=== PATIENT | male | born 1985 | race Caucasian/White ===

== ENCOUNTER 2023-09-16 19:08 | Emergency (ER) | payer OTHER, SELFPAY ==
[2023-09-16 19:11] VITALS: BP 125/82; PULSE 90; RESP 16; TEMP 36.9; O2SAT 98; BMI 25.8
[2023-09-16] MEDS: CLINDAMYCIN 150 MG CAPSULE 300 MG PO (19:54)
--- NOTE | 2023-09-16 19:59 | ED.GENADULT ---
HPI - General Adult General Date Seen: 09/16/23 Chief complaint: Laceration/Wound Stated complaint: Left ear needs stiches Time Seen by Provider: 09/16/23 19:10 Source: patient Mode of arrival: ambulatory Limitations: no limitations History of Present Illness HPI narrative: Patient is a 38-year-old male here with his for evaluation of a laceration on his left ear. He was playing with his 2 dogs, 1 of them caught his left earlobe with their tooth. Both he and the dog are up-to-date in immunizations. No other injuries or complaints. Related Data Home Medications ?Medication ?Instructions ?Recorded ?Confirmed Lactobacillus acidophilus 10 10,000 mmu cells PO DAILY 09/16/23 09/16/23 billion cell capsule albuterol sulfate 90 mcg/actuation 2 inh inhalation Q6H PRN 09/16/23 09/16/23 aerosol inhaler bupropion HCl 300 mg 24 hr tablet, 300 mg PO DAILY 09/16/23 09/16/23 extended release (Wellbutrin XL) dextroamphetamine-amphetamine ER 10 mg PO BID 09/16/23 09/16/23 10 mg 24hr capsule,extend release (Adderall XR) fluticasone propionate 50 2 spray intranasal DAILY PRN 09/16/23 09/16/23 mcg/actuation nasal spray,suspension (24 Hour Allergy Relief) magnesium oxide 500 mg capsule 500 mg PO BID 09/16/23 09/16/23 montelukast 10 mg tablet 10 mg PO .PRN 09/16/23 09/16/23 (Singulair) pantoprazole 20 mg tablet,delayed 20 mg PO DAILY 09/16/23 09/16/23 release (Protonix) tizanidine 2 mg capsule (Zanaflex) 2 mg PO Q6-8H PRN 09/16/23 09/16/23 Previous Rx's ?Medication ?Instructions ?Recorded clindamycin HCl 300 mg capsule 300 mg PO TID #15 caps 09/16/23 Allergies Allergy/AdvReac Type Severity Reaction Status Date / Time Penicillins Allergy Unknown Anaphylaxis Verified 09/16/23 19:14 PFSH PFS Social History Smoking Status: Never smoker How often do you have a drink containing alcohol: never AUDIT-C Alcohol total score: 0 Non-prescribed substance use: denies use Exam Narrative: Exam Narrative: Vital signs reviewed In general, alert, well-appearing man. ENT: He has a 1 cm laceration across the left ear lobe which does gape some. Is not a through and through laceration however. Const: Vital Signs, click to edit/add: Vital Signs - 24 hr 09/16/23 19:11 Temperature 98.5 F Pulse Rate [Pulse Oximeter] 90 Respiratory Rate 16 Blood Pressure [Ri ght Upper Arm] 125/82 Pulse Oximetry 98 Oxygen Delivery Me thod Room Air Documenting provider has reviewed patient's vital signs: yes Course Course ED Course: I recommended repair of this given location and appearance, he understands that the rate of infection is higher given that this is a laceration from a tooth. Agreed to proceed. Procedure note: Wound was anesthetized with local lidocaine with epinephrine. Cleaned thoroughly with normal saline and then closed using 5 0 nylon. A total of for superficial simple interrupted sutures were placed. He tolerated this well without immediate complication. He does have an allergy to penicillin. Pharmacies are closed, will give a dose of clindamycin here and then a prescription to fill tomorrow. Suture removal in 5-7 days. Should be seen promptly for signs of infection. Vital Signs Vital signs: Initial Vital Signs Temperature 98.5 F 09/16/23 19:11 Temperature Source Temporal Artery Scan 09/16/23 19:11 Pulse Rate 90 09/16/23 19:11 Pulse Rhythm Regular 09/16/23 19:11 Respiratory Rate 16 09/16/23 19:11 Blood Pressure 125/82 09/16/23 19:11 Blood Pressure Mean 96 09/16/23 19:11 Blood Pressure Position Sitting 09/16/23 19:11 Pulse Oximetry 98 09/16/23 19:11 Oxygen Delivery Method Room Air 09/16/23 19:11 Vital Signs Temperature 98.5 F 09/16/23 19:11 Pulse Rate 90 09/16/23 19:11 Respiratory Rate 16 09/16/23 19:11 Blood Pressure 125/82 09/16/23 19:11 Pulse Oximetry 98 09/16/23 19:11 Oxygen Delivery Method Room Air 09/16/23 19:11 Temperature 98.5 F 09/16/23 19:11 Pulse Rate 90 09/16/23 19:11 Respiratory Rate 16 09/16/23 19:11 Blood Pressure 125/82 09/16/23 19:11 Pulse Oximetry 98 09/16/23 19:11 Oxygen Delivery Method Room Air 09/16/23 19:11 Medications Administered Medications: Generic Name Dose Route Start Last Admin Trade Name Wilfred PRN Reason Stop Dose Admin Clindamycin HCl 300 mg 09/16/23 19:39 09/16/23 19:54 Clindamycin 150 Mg Capsule PO 09/16/23 19:40 300 mg ONCE ONE Administration Discharge Plan Discharge Clinical Impression: Laceration, Animal bite Patient Disposition: Home, Self-Care Condition: Improved Instructions: Laceration (DC) Additional Instructions: Take antibiotic as prescribed. Suture removal in 5-7 days. Return at any time if signs of infection. Prescriptions: New clindamycin HCl 300 mg capsule 300 mg PO TID Qty: 15 0RF No Action magnesium oxide 500 mg capsule 500 mg PO BID Lactobacillus acidophilus 10 billion cell capsule 10,000 mmu cells PO DAILY tizanidine [Zanaflex] 2 mg capsule 2 mg PO Q6-8H PRN Rx Instructions: Take 1-2mg PO each time PRN for muscle spasm pantoprazole [Protonix] 20 mg tablet,delayed release (DR/EC) 20 mg PO DAILY montelukast [Singulair] 10 mg tablet 10 mg PO .PRN bupropion HCl [Wellbutrin XL] 300 mg tablet extended release 24 hr 300 mg PO DAILY albuterol sulfate 90 mcg/actuation HFA aerosol inhaler 2 inh inhalation Q6H PRN dextroamphetamine-amphetamine [Adderall XR] 10 mg capsule,extended release 24hr 10 mg PO BID fluticasone propionate [24 Hour Allergy Relief] 50 mcg/actuation spray,suspension 2 spray intranasal DAILY PRN Rx Instructions: administer into each nostril Stand Alone Forms: [facility] Info Inst[facility]
[2023-09-16 20:13] VITALS: BP 125/82; PULSE 90; RESP 16; TEMP 36.9
== END 2023-09-16 20:18 | disposition home or self-care (01) ==
PROVIDERS: Emergency Provider Emergency Medicine
DX: S01.312A Laceration without foreign body of left ear, initial encounter (principal); W54.0XXA Bitten by dog, initial encounter
CPT/HCPCS: 12011; 99283; 99284; A9270

== ENCOUNTER 2024-09-30 17:45 | Emergency (ER) | payer OTHER, SELFPAY ==
--- OUTSIDE RECORDS SUMMARY | 2024-09-30 17:48 | XMS_ITS | Clinical Summary ---
Author Organization [facility] Address [address] [place] [address] Care Team Providers Care Land Leases And Rentals Manager Name Role Phone Unavailable Primary Care Provider Unavailabl e Source Comments Patient records contain information from all sites at [facility]. For routine questions regarding patient records, call [phone] during business hours, M-F 8:00 AM - 5:00 PM Central Time. Record requests for emergency care only can be directed to [phone] at any time.[facility] Allergies Active Allergy Reactions Criticality Noted Date Comments Omeprazole GI intolerance 10/03/2019 Penicillin G Anaphylaxis High 08/12/2023 Penicillins Anaphylaxis High 11/24/2015 Medications ketotifen (ZADITOR) 0.025 % (0.035 %) ophthalmic solution 1 drop 2 (two) times a day. Active doxycycline monohydrate (ADOXA) 100 mg tablet Take 1 tablet (100 mg total) by mouth 2 (two) times a day. 28 tablet 4 Active metroNIDAZOLE (FLAGYL) 500 mg tablet Take 1 tablet (500 mg total) by mouth 3 (three) times a day. 30 tablet 4 Active albuterol sulfate (ProAir RespiClick) 90 mcg/actuation aerosol powdr breath activated inhaler daily as needed. Active buPROPion XL (Wellbutrin XL) 300 mg 24 hr tablet Take 1 tablet by mouth daily. 4 Active cholecalciferol, vitamin D3, 25 mcg (1,000 Unit) tablet Take 1,000 Units by mouth. Active clindamycin (Cleocin) 300 mg capsule Take 1 capsule by mouth 3 (three) times a day. 4 Active amphetamine-dext roamphetamine (AdderalL XR) 10 mg 24 hr capsule Take 10 mg by mouth. 4 Active fluticasone propionate (Flonase) 50 mcg/actuation nasal spray Administer 2 sprays into nostril(s) daily. 0 Active Lactobacillus acidophilus 10 billion cell capsule Probiotic one tablet daily Active magnesium oxide 500 mg capsule Take 500 mg by mouth 2 (two) times a day. 0 Active montelukast (Singulair) 10 mg tablet Take 1 tablet by mouth at bedtime. 3 Active pantoprazole (Protonix) 20 mg EC tablet Take 20 mg by mouth. 4 Active tiZANidine (Zanaflex) 2 mg tablet Take 1-2 mg by mouth every 6 (six) hours as needed. 4 Active albuterol 90 mcg/actuation inhaler Inhale 2 puffs 4 (four) times a day as needed. 8 Active dextroamphetamin e-amphetamine (AdderalL) 10 mg tablet Take 1 tablet by mouth daily. 9 Active dextroamphetamin e-amphetamine (AdderalL) 10 mg tablet Take 1 tablet by mouth daily. 3 Active Active Problems No known active problems Social History Tobacco Use Types Packs/Day Years Used Date Smoking Tobacco: Never Tobacco Cessation:Counseling Given: Not Answered Alcohol Use Standard Drinks/Week Comments Yes 0 (1 standard drink = 0.6 oz pur e alcohol) socially on occasion Sex and Gender Information Value Date Recorded Sex Assigned at Not on file Legal Sex Male 10:49 AM CDT Gender Identity Not on file Sexual Orientation Not on file Last Filed Vital Signs Vital Sign Reading Time Taken Comments Blood Pressure 121/87 09/27/2023 7:56 AM CDT Pulse 79 09/27/2023 7:56 AM CDT Temperature 36.8 C (98.2 F) 08/12/2023 11:08 PM CDT Respiratory Rate 16 08/12/2023 11:08 PM CDT Oxygen Saturation 95% 08/12/2023 11:08 PM CDT Inhaled Oxygen Concentration - - Weight 82 kg (180 lb 12.4 oz) 08/12/2023 10:38 P M CDT Height - - Body Mass Index - - Plan of Treatment Health Maintenance Due Date Last Done Comments COVID-19 Vaccine ( season) 2023 03/01/2021, 04/15/2020, 03/25/2020 Depression Screening (Annual PHQ-2) 03/12/2024 Influenza Vaccine (#1) 2024 , 01/01/2023, 12/09/2021, Additional history exists Lipid (Cholesterol) Screening 08/03/2025 08/03/2020, 10/03/2019 DTaP,Tdap,and Td Vaccines (7 - Td or Tdap) 03/31/2031 03/31/2021, 10/23/2002, 07/15/1990, Additional history exists IPV Vaccines Completed 07/15/1990, 09/10, 1985, Additional history exists HPV Vaccines Completed 03/31/2021, 12/10, 09/29/2020 HIV Screening Completed 10/05/2023, 08/12/2023 Hepatitis B Screening Discontinued 12/24/2023, 020 Pneumococcal vaccine (0-49 years) Aged Out No longer eligible based on patient's age to complete this topic Procedures Procedure Name Priority Date/Time Associated Diagnosis Comments HIV-1/-2 AG AND AB SCREEN, PLASMA Routine 10/05/2023 8:49 AM CDT Open Bite Unspecified Part Neck Initial from Last 3 Months or Most Recently Relevant to Health Maintenance Results * HIV-1/-2 Ag and Ab Screen, Plasma (10/05/2023 8:49 AM CDT) HIV Ag/Ab Screen, P Negative Negative 10/05/2023 4:12 PM CDT [facility] Comment: Negative result does not rule out HIV infection. If exposure to HIV infection occurred <14 days ago, contact the laboratory to request addition of HIV-1/HIV-2 RNA detection, Plasma (HIP12). HIV-1 p24 Ag Screen, P Negative Negative 10/05/2023 4:12 PM CDT [facility] Comment: Negative result does not rule out HIV infection. If exposure to HIV infection occurred <14 days ago, contact the laboratory to request addition of HIV-1/HIV-2 RNA detection, Plasma (HIP12). HIV-1 Ab Screen, P Negative Negative 10/05/2023 4:12 PM CDT [facility] Comment: Negative result does not rule out HIV infection. If exposure to HIV infection occurred <14 days ago, contact the laboratory to request addition of HIV-1/HIV-2 RNA detection, Plasma (HIP12). HIV-2 Ab Screen, P Negative Negative 10/05/2023 4:12 PM CDT [facility] Comment: Negative result does not rule out HIV infection. If exposure to HIV infection occurred <14 days ago, contact the laboratory to request addition of HIV-1/HIV-2 RNA detection, Plasma (HIP12). Blood (Blood, Venous) 10/05/2023 8:49 AM CDT 10/05/2023 2:56 PM CDT Christiana Vu P.A.-C., P.A., M.S. LAB MICROBIOLOGY - BLOOD ORDERABLES Final Result [facility] [address] [place] [id number], [facility] [place] [id number] from Last 3 Months or Most Recently Relevant to Health Maintenance Insurance [place] [id number] [employer] [place] [id number] [employer] [place] [id number] [facility] [place] [id number]
--- OUTSIDE RECORDS SUMMARY | 2024-09-30 17:48 | XMS_ITS | Clinical Summary ---
Author Organization [facility] Address [address] [place] [address] Care Team Providers Care Steward/Stewardess Bath Name Role Phone Danita Lentz MD Primary Care Prov ider Allergies Active Allergy Reactions Criticality Noted Date Comments Esomeprazole Other - Describe In Comment Field 10/03/2019 Causes Reflux Omeprazole Constipation 10/03/2019 Penicillin G Anaphylaxis High 08/12/2023 Penicillins Anaphylaxis High 10/03/2019 Medications Lactobacillus acidophilus (PROBIOTIC) 10 billion cell cap Probiotic one tablet daily Active Magnesium Oxide 500 mg cap Take 500 mg by mouth 2 times daily. 0 020 Active albuterol HFA (PRO-AIR,VENTOLIN,PROV ENTIL) 90 mcg/actuation inhalerIndications:Mil d intermittent asthma without complication (HC) Inhale 2 Puffs by mouth 4 times daily if needed (SOB/wheezing). 8.5 g 023 Active Additional Information Patient taking differently:2 Puff InhalationEACH TIME PRN, SOB/wheezing, Reported on 05/26/2024 meloxicam 15 mg tabletIndications:Acut e wrist pain, right Take 1 Tablet (15 mg) by mouth once daily. 14 Tablet 08/18/19 24 2:57 AM CDT 024 Active pantoprazole (PROTONIX) 20 mg tabletIndications:Treasury Director iker GERD Take 1 Tablet (20 mg) by mouth once daily before a meal. 90 Tablet 3 024 Active tiZANidine (ZANAFLEX) 2 mg tabletIndications:Acut e low back pain, unspecified back pain laterality, unspecified whether sciatica present Take 0.5-1 Tablets (1-2 mg) by mouth every 6 hours if needed for Muscle Spasm. 20 Tablet 2 024 Active montelukast (SINGULAIR) 10 mg tabletIndications:Yeyo rgic rhinoconjunctivitis Take 1 Tablet (10 mg) by mouth at bedtime. 90 Tablet 3 024 Active buPROPion (Wellbutrin XL) 300 mg Extended-Release tabletIndications:Depr ession, recurrent Take 1 Tablet (300 mg) by mouth once daily. 90 Tablet 3 024 Active dextroamphetamine-amph etamine (Adderall XR) 10 mg Extended-Release capsuleIndications:Att ention deficit hyperactivity disorder (ADHD), predominantly inattentive type Take 1 Capsule (10 mg) by mouth 2 times daily at 7 AM and Noon. 60 Capsule 025 Active emtricitabine-tenofovi r (200-300 mg) (Truvada) tabletIndications:Enco unter for HIV pre-exposure prophylaxis Take 1 Tablet by mouth once daily. 90 Tablet 025 Active dextroamphetamine-amph etamine (Adderall XR) 10 mg Extended-Release capsuleIndications:Att ention deficit hyperactivity disorder (ADHD), predominantly inattentive type Take 1 Capsule (10 mg) by mouth 2 times daily at 7 AM and Noon. 60 Capsule 025 Active dextroamphetamine-amph etamine (AdderalL) 5 mg tabletIndications:Atte ntion deficit hyperactivity disorder (ADHD), predominantly inattentive type Take 1 Tablet (5 mg) by mouth once daily. As needed 15 Tablet 025 Active dextroamphetamine-amph etamine (Adderall XR) 10 mg Extended-Release capsuleIndications:Att ention deficit hyperactivity disorder (ADHD), predominantly inattentive type Take 1 Capsule (10 mg) by mouth 2 times daily at 7 AM and Noon. 60 Capsule 025 2024 dextroamphetamine-amph etamine (AdderalL) 5 mg tabletIndications:Atte ntion deficit hyperactivity disorder (ADHD), predominantly inattentive type Take 1 Tablet (5 mg) by mouth once daily. 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 Mild intermittent asthma without complication Gastroesophageal reflux disease without esophagi tis 06/07/2007 Encounters Date Type Department Care Team Description 07/23/2024 Telephone [facility] [address] [place] [address] Danita Lentz MD Prior Authorization (dextroamphetamine-am phetamine (Adderall XR) 10 mg Extended-Release capsule (PA NOT NEEDED / NOT REQUIRED)) 07/23/2024 Telephone [facility] [address] [place] [address] Danita Lentz MD Prior Authorization (dextroamphetamine-am phetamine (AdderalL) 5 mg tablet (APPROVED 07/23/24 - 07/23/27)) 07/18/2024 5:35 PM CDT Nurse/Clinic Staff Only [address] [address] 07/18/2024 Travel 07/18/[address] [address] Danita Lentz MD Results 07/18/2024 Patient Outreach [address] [address] Danita Lentz MD Error-please disregard 07/17/2024 1:30 PM CDT Nurse/Clinic Staff Only [address] [address] Lab (Oral and rectal chlamydia screening ) 07/16/2024 11:05 AM CDT Office Visit [facility] [address] [place] [address] Danita Lentz MD Medication Management (Renewal /Would like to add quick release for adderall ) 07/16/2024 Travel from Last 3 Months Immunizations Immunization Administration Dates Next Due COVID-19 vaccine (OdinOtvetBio NTech 30mcg/0.3mL) PF, MDV 04/15/2020,03/25/2020 DTP 07/15/1990, 7,1985,05/16,1985 HPV 9 (Gardasil 9) 03/31/2021,12/21/2020, 021 Hepatitis A (Adult) 06/07/2007 Hepatitis A (Peds) 05/05/2008,06/07/2007 Hepatitis A, Unspecified 05/05/2008,06/07/2007 Hepatitis B (Peds) 07/09/1996,02/07/1996, 996 Hepatitis B, Unspecified 07/09/1996,02/07/1996,1 INFLUENZA, IIV3 PF (AGE >= 6 MO) 02/01/2024 Inactivated Polio Vaccine 07/15/1990,,1985,03/27 Influenza Virus, Unspecified 01/26/2018,12/19/19 17,12/26/2015 Influenza, IIV4 01/01/2023,,12/21/2020,12/29 Influenza, IIV4 (=>6mos) MDV 12/30/2019 Influenza, RIV3 (Age =>18 Years) 01/22/2014 MMR 02/16/1997,10/01/1986 Meningococcal Vaccine (Menactra) 11/30/2003 Meningococcal Vaccine (Menomune) 11/30/2003 Td (Age >=7 Years) 10/10/2013,10/23/2002 Td, Preservative Free (age >= 7 Years) 3 Tdap 03/31/2021 Tuberculin (PPD) 09/28/2003, 4,10/07/2002,10/07 Family History Medical History Relation Name Comments Asthma Brother 1 Thyroid cancer Brother 1 SIDS Brother 2 Diabetes Father Heart Disease Father s/p CABG Kidney cancer Father Obesity Father Stroke Maternal Grandmother Anemia Mother Cancer-prostate Paternal Grandfather Alzheimer's disease Paternal Grandmother No Known Problems Sister Relation Name Status Comments Brother 1 Alive Brother 2 Father Alive Maternal Grandfather Maternal Grandmother Mother Alive Paternal Grandfather Paternal Grandmother Sister Alive Social History Tobacco Use Types Packs/Day Years Used Date Smoking Tobacco: Never Passive Smoke Exposure: Past Smokeless Tobacco: Never Tobacco Cessation:Counseling Given: Not Answered Passive Exposure Comments:as a child Alcohol Use Standard Drinks/Week Comments Yes 0 (1 standard drink = 0.6 oz pur e alcohol) PHQ-2 Answer Date Recorded PHQ-2 TOTAL SCORE 2 10/31/2023 Social Connections Answer Date Recorded Do you often feel lonely or isolated from those around you? 0 10/31/2023 Financial Resource Strain Answer Date R ecorded Difficulty of Paying Living Expenses 3 10/31/2023 Difficulty of Paying Living Expenses Not on file 10/31/2023 Food Insecurity Answer Date Recorded Do you worry your food will run out before you are able to buy more? 1 10/31/2023 Transportation Needs Answer Date Record ed Does lack of transportation keep you from medica l appointments? 1 10/31/2023 Does lack of transportation keep you from work, meetings or getting things that you need? 1 10/31/2023 Housing Stability Answer Date Recorded What is your housing situation today? 1 10/31/2023 Interpersonal Safety Answer Date Record ed Are you being hit, kicked, p ushed or yelled at (see row info)? No 07/22/2023 Interpersonal Safety Abuse 12 - 18 Not on file 07/22/2023 Interpersonal Safety Ambulatory Vulnerability No t on file 07/22/2023 Utilities Answer Date Recorded Do you have trouble paying f or utilities (for example, heat, electricity, water, phone)? 1 10/31/2023 Sex and Gender Information Value Date Recorded Sex Assigned at Male 12/15/2019 5:12 PM CDT Legal Sex Male 5:12 PM CDT Gender Identity Male 12/15/2019 5:12 PM CDT Sexual Orientation Lesbian or Sanchez 03/13/2022 7: 46 PM 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 file Not on file Obstetrics History Last Filed Vital Signs Vital Sign Reading Time Taken Comments Blood Pressure 110/75 07/16/2024 11:09 AM CDT Pulse 78 07/16/2024 11:09 AM CDT Temperature 37.1 C (98.7 F) 08/17/2023 12:45 PM CDT Respiratory Rate 16 12/24/2023 1:55 PM CDT Oxygen Saturation 97% 07/16/2024 11:09 AM CDT Inhaled Oxygen Concentration - - Weight 88 kg (194 lb) 02/01/2024 9:11 AM 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 Height 181.3 cm (5' 11.38) 12/24/2023 1:55 PM C DT Body Mass Index 26.77 12/24/2023 1:55 PM CDT Plan of Treatment Health Maintenance Due Date Last Done Comments COVID-19 vaccine series ( season) 2023 03/01/2021, 04/15/2020, 03/25/2020 Depression screening for age 12+ 10/30/2024 10/31/2023, 10/31/2023, 03/31/2021, Additional history exists Influenza Vaccine (#1) 2024 , 01/01/2023, 12/09/2021, Additional history exists BMI (ht and wt on same day) for age 18+ 12/23/2024 12/24/2023, 12/09/2021, 09/01/2021, Additional history exists Lipids for age 35-44 12/23/2028 12/24/2023, 08/03/2020, 10/03/2019 Tetanus booster 03/31/2031 03/31/2021, 08/0 03/2013, 10/23/2002, Additional history exists Hepatitis B series for 19+ Completed 07/09, 07/09/1996, 02/07/1996, Additional history exists HIV for age 15-65 Completed 07/16/2024, , 06/05/2022, Additional history exists Hepatitis C screening for age 18-79 Completed 07/16/2024, 12/24/2023, 06/05/2022, Additional history exists Pneumococcal series for age 6-49 Aged Out No longer eligible based on patient's age to complete this topic Procedures Procedure Name Priority Date/Time Associated Diagnosis Comments GC CHLAMYDIA TRACH PROBE Routine 07/17/2024 1:40 PM CDT Encounter for HIV pre-exposure prophylaxis GC CHLAMYDIA TRACH PROBE Routine 07/17/2024 1:40 PM CDT Encounter for HIV pre-exposure prophylaxis CREATININE Routine 07/16/2024 1:41 PM CDT Encounter for HIV pre-exposure prophylaxis ANTI HIV 1/2 Routine 07/16/2024 1:41 PM CDT Encounter for HIV pre-exposure prophylaxis HEPATIC FUNCTION PANEL Routine 07/16/2024 1:41 PM CDT Encounter for HIV pre-exposure prophylaxis ANTI HCV Routine 07/16/2024 1:41 PM CDT Encounter for HIV pre-exposure prophylaxis TREPONEMA PALLIDUM Routine 07/16/2024 1: 40 PM CDT Encounter for HIV pre-exposure prophylaxis GC CHLAMYDIA TRACH PROBE Routine 07/16/2024 11:34 AM CDT Encounter for HIV pre-exposure prophylaxis LIPID PANEL Routine 12/24/2023 2:43 PM CDT Screening cholesterol level from Last 3 Months or Most Recently Relevant to Health Maintenance Results * GC Chlamydia [[id number]] - Oral (07/17/2024 1:40 PM CDT) Only the most recent of3 resultswithin the time period is included. CHLAMYDIA PROBE Negative 12:58 PM CDT [facility] N GONORRHOEAE PROBE Negative 07/18/2024 12:58 PM CDT [facility] Other ORAL / Unknown Non-Blood / Unknown 07/17/2024 1:40 PM CDT 07/17/2024 2:02 PM CDT Danita Lentz MD MICROBIOLOGY Fi nal Result [facility] [address] [place] [address], [place] * ANTI HCV (07/16/2024 1:41 PM CDT) HEPATITIS C ANTIBODY NON-REACTI VE NON-REACT VENTURA [facility] Comment: HCV antibody was non-reactive. There is no laboratory evidence of HCV infection. In most cases, no further action is required. However, if recent HCV exposure is suspected, a test for HCV RNA (test code 67184) is suggested. For additional information please refer to http://education.iPositioning/faq/IWF37j6 (This link is being provided for informational/ educational purposes only.) Blood BLOOD SPECIMEN / Unknown 07/16/2024 1:41 PM CDT 07/16/2024 1:41 PM CDT Danita Lentz MD SEND OUTS Fi nal Result Performing Organization Address [facility]/ZIP Co de Phone Number [employer] [address] [address], [place] [phone] [facility] [address] * CREATININE (07/16/2024 1:41 PM CDT) Pathologist [facility] CREATININE 0.97 0.60 - 1.26 mg/dL [facility] EGFR 102 > OR = 60 mL/min/1.73 m2 [facility] Blood BLOOD SPECIMEN / Unknown 07/16/2024 1:41 PM CDT 07/16/2024 1:41 PM CDT Danita Lentz MD CHEMISTRY Fi nal Result Performing Organization Address [facility]/ZIP Co de Phone Number [employer] [facility] [address] [place] [address], [place] [phone] [facility] [address] [place] [address] * ANTI HIV 1/2 (07/16/2024 1:41 PM CDT) Pathologist [facility] HIV AG/AB, 4TH GEN NON-REACT VENTURA NON-REACT VENTURA [facility] Comment: HIV-1 antigen and HIV-1/HIV-2 antibodies were not detected. There is no laboratory evidence of HIV infection. PLEASE NOTE: This information has been disclosed to you from records whose confidentiality may be protected by state law. If your state requires such protection, then the state law prohibits you from making any further disclosure of the information without the specific written consent of the person to whom it pertains, or as otherwise permitted by law. A general authorization for the release of medical or other information is NOT sufficient for this purpose. For additional information please refer to http://education.iPositioning/faq/GNP024 (This link is being provided for informational/ educational purposes only.) The performance of this assay has not been clinically validated in patients less than 2 years old. Blood BLOOD SPECIMEN / Unknown 07/16/2024 1:41 PM CDT 07/16/2024 1:41 PM CDT Danita Lentz MD SEND OUTS Fi nal Result [employer] [id number] [place] [address], [facility] [address] [place] [address] * LIVER PANEL (HEPATIC FUNCTION PANEL) (07/16/2024 1:41 PM CDT) Pathologist [facility] PROTEIN, TOTAL 7.5 6.1 - 8.1 g/dL [facility] ALBUMIN 4.8 3.6 - 5.1 g/dL [facility] GLOBULIN 2.7 1.9 - 3.7 g/dL (calc) [facility] ALBUMIN/GLOBULIN RATIO 1.8 1.0 - 2.5 (calc) [facility] BILIRUBIN, TOTAL 0.8 0.2 - 1.2 mg/dL [facility] BILIRUBIN, DIRECT 0.2 < OR = 0.2 mg/dL [facility] BILIRUBIN, INDIRECT 0.6 0.2 - 1.2 mg/dL (calc) [facility] ALKALINE PHOSPHATASE 64 36 - 130 U/L [facility] AST 24 10 - 40 U/L [facility] ALT 32 9 - 46 U/L [facility] Blood BLOOD SPECIMEN / Unknown 07/16/2024 1:41 PM CDT 07/16/2024 1:41 PM CDT Danita Lentz MD CHEMISTRY Fi nal Result Performing Organization Address [facility]/ZIP Co de Phone Number [facility] [facility] [address] [place] [address], [facility] [address] [place] [address] * TREPONEMA PALLIDUM [[id number]] (07/16/2024 1:40 PM CDT) Pathologist [facility] TREPONEMA PALLIDUM Non-Reacti ve Non-Reacti ve 07/16/2024 11:17 PM CDT [facility] Blood BLOOD SPECIMEN / Unknown [facility] / Unknown 07/16/2024 1:40 PM CDT 07/16/2024 1:40 PM CDT Danita Lentz MD SEND OUTS Fi nal Result [facility] [address] [place] [address], * (ABNORMAL) LIPID PANEL (12/24/2023 2:43 PM CDT) CHOLESTEROL, TOTAL 256(H) <200 mg/dL [facility] HDL CHOLESTEROL 61 > OR = 40 mg/dL [facility] TRIGLYCERIDES 149 <150 mg/dL [facility] LDL-CHOLESTEROL 166(H) mg/dL (calc) [facility] Comment: Reference range: <100 Desirable range <100 mg/dL for primary prevention; <70 mg/dL for patients with CHD or diabetic patients with > or = 2 CHD risk factors. LDL-C is now calculated using the Gama-Flor calculation, which is a validated novel method providing better accuracy than the Friedewald equation in the estimation of LDL-C. Gama MACHADO et al. HEIDI. 2013;310(19): 3188-1848 (http://education.[employer]/faq/ZNT008) CHOL/HDLC RATIO 4.2 <5.0 (calc) [facility] NON HDL CHOLESTEROL 195(H) <130 mg/dL (calc) [facility] Comment: For patients with diabetes plus 1 major ASCVD risk factor, treating to a non-HDL-C goal of <100 mg/dL (LDL-C of <70 mg/dL) is considered a therapeutic option. Blood BLOOD SPECIMEN / Unknown 12/24/2023 2:43 PM CDT 12/24/2023 2:44 PM CDT Narrative [facility] - 12/25/2023 5:18 AM CDT SPECIMEN COLLECTED AT PROVIDER OFFICE. Danita Lentz MD CHEMISTRY Fi nal Result [facility] [address] [place] [address], [facility] [address] [place] [address] from Last 3 Months or Most Recently Relevant to Health Maintenance Insurance [facility] [employer] Care Teams Steward/Stewardess Bath Relationship Specialty Start Date End Date Danita Lentz MD [address] [place] [address] PCP - General Family Practice 10/31/23
[2024-09-30 17:53] VITALS: BP 131/52; PULSE 107; RESP 18; TEMP 36.7; O2SAT 98; BMI 24.1
--- NOTE | 2024-09-30 18:13 | ED.ABDPAIN ---
HPI - Abdominal Pain General Time Seen by Provider: 18:14 Date Seen: 09/30/24 Chief Complaint: Abdominal Pain Stated Complaint: abdominal pain, possibly COVID+ Time Seen by Provider: 09/30/24 17:49 Source: patient and RN notes reviewed Mode of arrival: ambulatory Limitations: no limitations History of Present Illness HPI narrative: This 39-year-old male is coming into the ER with concern of left-sided abdominal pain. He feels along his left side, radiates to his left testicle. He has felt this testicle, feels soft, not hard, not enlarged but the pain is going into his testicle. He has noted no urinary changes. He baseline has GI issues but they have worsened. He has a Schatzki is ring and had noticed some increased reflux symptoms but was able to swallow and drink. He baseline has constipation, has had take MiraLax for this, with the use of Tylenol with his current illness, he did have increased difficulty with stools and had take Colace. He states he had a prolapsed internal hemorrhoid that he had to put back in place, was quite painful. He traveled for work last week, he states people were coughing on the airplane. Sunday he started with some of these GI symptoms. By Sunday he really was not feeling well, significant body aches and joint aches. He has run fevers. He tested positive for COVID at home on Sunday. Nursing staff did go to do a COVID swab today here but he declined. No respiratory symptoms such as coughing significant nasal congestion. He has maybe had a little mild sore throat. Majority of his symptoms have been body aches and joint pains with fever. He has no history of kidney stones. Related Data Home Medications ?Medication ?Instructions ?Recorded ?Confirmed Lactobacillus acidophilus 10 10,000 mmu cells PO DAILY 09/16/23 09/16/23 billion cell capsule albuterol sulfate 90 mcg/actuation 2 inh inhalation Q6H PRN 09/16/23 09/16/23 aerosol inhaler bupropion HCl 300 mg 24 hr tablet, 300 mg PO DAILY 09/16/23 09/16/23 extended release (Wellbutrin XL) dextroamphetamine-amphetamine ER 10 mg PO BID 09/16/23 09/16/23 10 mg 24hr capsule,extend release (Adderall XR) fluticasone propionate 50 2 spray intranasal DAILY PRN 09/16/23 09/16/23 mcg/actuation nasal spray,suspension (24 Hour Allergy Relief) magnesium oxide 500 mg capsule 500 mg PO BID 09/16/23 09/16/23 montelukast 10 mg tablet 10 mg PO .PRN 09/16/23 09/16/23 (Singulair) pantoprazole 20 mg tablet,delayed 20 mg PO DAILY 09/16/23 09/16/23 release (Protonix) tizanidine 2 mg capsule (Zanaflex) 2 mg PO Q6-8H PRN 09/16/23 09/16/23 Previous Rx's ?Medication ?Instructions ?Recorded clindamycin HCl 300 mg capsule 300 mg PO TID #15 caps 09/16/23 hydrocortisone acetate 25 mg 25 mg MO BID PRN #12 ea 09/30/24 rectal suppository (Anusol-HC) Allergies Allergy/AdvReac Type Severity Reaction Status Date / Time Penicillins Allergy Unknown Anaphylaxis Verified 09/30/24 18:48 Review of Systems Status of ROS Reports: 6 or more systems reviewed and unremarkable except as noted in History and below [facility] Social History Smoking Status: Never smoker How often do you have a drink containing alcohol: never AUDIT-C Alcohol total score: 0 Non-prescribed substance use: denies use Exam Const: Vital Signs, click to edit/add: Vital Signs - 24 hr 09/30/24 17:53 Temperature 98.1 F Pulse Rate [Pulse Oximeter] 107 H Respiratory Rate 18 Blood Pressure [Ri ght Upper Arm] 131/52 L Pulse Oximetry 98 Oxygen Delivery Me thod Room Air This 39-year-old male is alert, interactive, no apparent distress. He is wearing a mask but able speak in complete sentences. Pupils equal round reactive, sclera clear. Lungs are clear, good air entry, wheeze or crackles, no tachypnea, no accessory muscle use. CV regular rate and rhythm, no murmur, normal S1-S2, no S3-S4. Abdomen is soft, normal bowel sounds, no rebound or guarding, no organomegaly or masses noted. He is tender when I palpate from mid left abdomen down to his left lower quadrant. Testes are descended bilaterally, left testicle has no masses, is not tender, not enlarged. Normal circumcised penis. Anus appears normal, no abnormality noted at the anus. Documenting provider has reviewed patient's vital signs: yes Course Course ED Course: Patient and I discussed his abdominal pain, unfortunately think we are going to need to proceed with CT imaging to rule out intra-abdominal pathology. It certainly could be something with the colon, could be urinary, even kidney stone. He is quite slender, think it is best if we proceed with CT imaging with IV contrast. We should still be able to see kidney stone if there is 1. This will also help to differentiate any infectious etiology like pyelonephritis or urinary tract inflammation. Will give him IV Toradol for some initial pain management. We will get full complement of labs including urinalysis. Reevaluation(s) Time of Reevaluation #1: 19:25 Reevaluation #1: Have reviewed patient's CT. He states the Toradol completely took away the abdominal pain. Still has some testicular pain. We discussed his testicular exam, it is not swollen it is actually not palpably tender, no masses. Did review possibility of underlying testicular torsion. He states he actually had an episode of that when he was younger, he states this does not feel like it. I have offered scrotal ultrasound but he is declining at this point. He will take a prescription for Toradol. We discussed trying some Anusol HC suppositories for the internal hemorrhoids, he would like to try that. We did discuss having him follow-up with her general surgeon if he continues to have issues. It is not clear what his pain is from but he is comfortable with the workup done, wishes to discharge home at this time. There is no evidence of any surgical abnormality, labs are reassuring. We did discuss that there is no evidence of urinary tract infection on the urinalysis but if the culture should grow anything, we will treat accordingly and contact him. Vital Signs Vital signs: Initial Vital Signs Temperature 98.1 F 09/30/24 17:53 Temperature Source Oral 09/30/24 17:53 Pulse Rate 107 H 09/30/24 17:53 Pulse Rhythm Regular 09/30/24 17:53 Pulse Strength 3+ Normal 09/30/24 17:53 Respiratory Rate 18 09/30/24 17:53 Blood Pressure 131/52 L 09/30/24 17:53 Blood Pressure Mean 78 09/30/24 17:53 Blood Pressure Position Sitting 09/30/24 17:53 Pulse Oximetry 98 09/30/24 17:53 Oxygen Delivery Method Room Air 09/30/24 17:53 Vital Signs Temperature 98.1 F 09/30/24 17:53 Pulse Rate 107 H 09/30/24 17:53 Respiratory Rate 18 09/30/24 17:53 Blood Pressure 131/52 L 09/30/24 17:53 Pulse Oximetry 98 09/30/24 17:53 Oxygen Delivery Method Room Air 09/30/24 17:53 Temperature 98.1 F 09/30/24 17:53 Pulse Rate 107 H 09/30/24 17:53 Respiratory Rate 18 09/30/24 17:53 Blood Pressure 131/52 L 09/30/24 17:53 Pulse Oximetry 98 09/30/24 17:53 Oxygen Delivery Method Room Air 09/30/24 17:53 Medications Administered Medications: Discontinued Medications Generic Name Dose Route Start Last Admin Trade Name Wilfred PRN Reason Stop Dose Admin Ketorolac Tromethamine 15 mg 09/30/24 18:22 09/30/24 18:57 Ketorolac 15 Mg/Ml Inj IVP 09/30/24 18:23 15 mg ONCE ONE Administration MDM - Abdominal Pain Lab Data Attestation: I reviewed the patient's lab results. Labs: Lab Results 09/30/24 09/30/24 Range/Units 18:31 18:35 WBC 5.34 (4.50-11.00) K/uL RBC 4.82 (4.30-5.90) m/uL Hgb 14.9 (13.5-17.5) gm/dL Hct 43.1 (37.0-53.0) % MCV 89 (80-100) fL MCH 31 (26-34) pg MCHC 35 (32-36) gm/dL RDW Coeff of Luisa 11.9 (11.5-15.5) % Plt Count 279 (140-440) K/uL Neut % (Auto) 56.7 (42.0-72.0) % Lymph % (Auto) 26.8 (20-44) % Barry % (Auto) 14.0 H (0.0-11.0) % Eos % (Auto) 2.1 (0.0-7.0) % Baso % (Auto) 0.2 (0.0-3.0) % Neut # (Auto) 3.03 (1.7-7.0) K/uL Lymph # (Auto) 1.43 (0.90-2.90) K/uL Barry # (Auto) 0.70 (0.00-0.90) K/UL Eos # (Auto) 0.11 (0.00-0.50) K/uL Baso # (Auto) 0.01 (0.00-0.30) K/uL Abs Immat Gran (auto) 0.01 (0.00-0.30) K/uL Imm/Tot Granulo (auto) 0.2 % Sodium 135 (135-149) mmol/L Potassium 4.0 (3.6-5.1) mmol/L Chloride 102 (96-114) mmol/L Carbon Dioxide 27 (20-32) mmol/L Anion Gap 6 L (7-15) mEq/L BUN 9 (5-24) mg/dL Creatinine 0.9 (0.5-1.5) mg/dL Estimated Creat Clear 117.37 Estimated GFR 111 ml/min Glucose 91 (60-115) mg/dL Lactate 0.7 (0.5-1.9) mmol/L Calcium 9.3 (8.4-10.6) mg/dL C-Reactive Protein 0.9 (0.5-1.0) mg/dL Urine Color Yellow (Yellow) Urine Appearance Clear (Clear) Urine pH 6.5 (5.0-8.5) Ur Specific [place] 1.010 (1.000-1.030) Urine Protein Negative (Negative) Urine Glucose (UA) Negative (Negative) Urine Ketones Negative (Negative) Urine Blood Trace-intact A (Negative) Urine Nitrite Negative (Negative) Urine Bilirubin Negative (Negative) Urine Urobilinogen 0.2 (0.2-1.0) Ur Leukocyte Esterase Negative (Negative) Urine RBC 0-2 (0-2) Urine WBC 0-2 (0-5) Ur Squamous Epith Cells None (None-Few) Urine Bacteria None (None) Lab Acknowledgement Test Added Imaging Data CT scan - abdomen: Attestation: I have reviewed the pertinent imaging results. Radiologist's impression: Patient: SHANTA LIN Facility:[facility] Patient ID:?[id number] Site Patient ID:?[id number]. Site :?[id number] Study:?CT-Abdomen/Pelvis 84CC ISOVUE 370-09/30/2024 6:46:32 PM Ordering Physician:Macey Quijano Final Report: INDICATION: Left-sided abdominal pain. COVID infection. COMPARISON: None. TECHNIQUE: CT of the abdomen and pelvis with intravenous contrast (84 milliliters Isovue 370). FINDINGS: Lung bases: No pleural effusion. Liver: Smooth hepatic contour. No suspicious hepatic lesions are identified. Gallbladder and biliary tree: Unremarkable CT appearance. Spleen: No splenomegaly. Pancreas: Normal. Adrenal glands: Normal. Kidneys and ureters: No hydroureteronephrosis. No suspicious renal lesions are identified. Bladder: Unremarkable CT appearance. Visualized reproductive organs: Unremarkable CT appearance. Gastrointestinal tract: There are a few mildly distended loops of small bowel most conspicuous in the right upper abdominal quadrant without juan carlos bowel dilatation. Postoperative changes compatible with appendectomy. Peritoneal cavity: No free fluid or free air. Lymph nodes: No enlarged abdominal or pelvic lymph nodes by CT size criteria. There are few mildly prominent, but nonenlarged bilateral perirectal lymph nodes measuring up to 4 millimeters (2/127). Vessels: No abdominal aortic aneurysm. Abdominal and pelvic wall: Focal slight asymmetric fat stranding in the right inguinal subcutaneous fat (4/30). Bones: There are osseous degenerative changes. Transitional lumbosacral anatomy. Slight anterior vertebral body wedging centered at the thoracolumbar junction. IMPRESSION: 1. No definite acute findings in the abdomen or pelvis. 2. There are a few mildly distended loops of small bowel most conspicuous in the right upper abdominal quadrant without juan carlos bowel dilatation. This is most likely either incidental or related delayed bowel transit/ileus. Correlate with clinical exam. 3. There are few mildly prominent, but nonenlarged bilateral perirectal lymph nodes measuring up to 4 millimeters. 4. Focal slight asymmetric fat stranding in the right inguinal subcutaneous fat. Correlate with direct observation. Please note that all CT scans at this facility use dose modulation, iterative reconstruction, and/or weight-based dosing when appropriate to reduce radiation dose to as low as reasonably achievable. Dictated by Jerald March MD @ 09/30/2024 7:20:44 PM (Electronic Signature) Discharge Plan Discharge Clinical Impression: COVID-19, Left lateral abdominal pain Patient Disposition: Home, Self-Care Condition: Stable Instructions: Abdominal Pain (ED), COVID-19 (Coronavirus Disease 2019) (ED) Additional Instructions: Can try the Toradol 10 mg 1 tablet every 4-6 hours is needed, not to exceed 4 pills in 24 hours, 20 prescribed. Use this in place of ibuprofen, can return to ibuprofen or NSAIDs of choice after the Toradol as done. It is fine to use Tylenol 1000 mg up to 3 times a day with either the Toradol or NSAIDs. Push fluids to stay hydrated. Your evaluation here did not give us any etiology of your abdominal pain. If you are having increasing abdominal pain, develops vomiting with this or fever pattern is worsening, have other concerning symptoms with this, do need to be re-evaluated. I did send in a prescription for Anusol HC suppositories for hemorrhoids; if you feel your internal hemorrhoids are not settling down are improving, can follow up in clinic here with our general surgeons. Phone number to clinic is [phone]. Prescriptions: New hydrocortisone acetate [Anusol-HC] 25 mg suppository 25 mg MO BID PRNQty: 12 0RF No Action magnesium oxide 500 mg capsule 500 mg PO BID Lactobacillus acidophilus 10 billion cell capsule 10,000 mmu cells PO DAILY tizanidine [Zanaflex] 2 mg capsule 2 mg PO Q6-8H PRN Rx Instructions: Take 1-2mg PO each time PRN for muscle spasm pantoprazole [Protonix] 20 mg tablet,delayed release (DR/EC) 20 mg PO DAILY montelukast [Singulair] 10 mg tablet 10 mg PO .PRN bupropion HCl [Wellbutrin XL] 300 mg tablet extended release 24 hr 300 mg PO DAILY albuterol sulfate 90 mcg/actuation HFA aerosol inhaler 2 inh inhalation Q6H PRN dextroamphetamine-amphetamine [Adderall XR] 10 mg capsule,extended release 24hr 10 mg PO BID fluticasone propionate [24 Hour Allergy Relief] 50 mcg/actuation spray,suspension 2 spray intranasal DAILY PRN Rx Instructions: administer into each nostril clindamycin HCl 300 mg capsule 300 mg PO TID Qty: 15 0RF Follow Up/Referrals: Provider,Not a Local [Non-Staff, Family Practice] Stand Alone Forms: MyHealth Info Instructions
[2024-09-30 18:22] VITALS: O2SAT 98
--- NOTE | 2024-09-30 18:22 | CRLHL7_ITS ---
For Patients: As a result of the Century Cures Act, medical imaging exams and procedure reports are released immediately into your electronic medical record. You may view this report before your referring provider. If you have questions, please contact your health care provider. INDICATION: Left-sided abdominal pain. COVID infection. COMPARISON: None. TECHNIQUE: CT of the abdomen and pelvis with intravenous contrast (84 milliliters Isovue 370). FINDINGS: Lung bases: No pleural effusion. Liver: Smooth hepatic contour. No suspicious hepatic lesions are identified. Gallbladder and biliary tree: Unremarkable CT appearance. Spleen: No splenomegaly. Pancreas: Normal. Adrenal glands: Normal. Kidneys and ureters: No hydroureteronephrosis. No suspicious renal lesions are identified. Bladder: Unremarkable CT appearance. Visualized reproductive organs: Unremarkable CT appearance. Gastrointestinal tract: There are a few mildly distended loops of small bowel most conspicuous in the right upper abdominal quadrant without juan carlos bowel dilatation. Postoperative changes compatible with appendectomy. Peritoneal cavity: No free fluid or free air. Lymph nodes: No enlarged abdominal or pelvic lymph nodes by CT size criteria. There are few mildly prominent, but nonenlarged bilateral perirectal lymph nodes measuring up to 4 millimeters (2/127). Vessels: No abdominal aortic aneurysm. Abdominal and pelvic wall: Focal slight asymmetric fat stranding in the right inguinal subcutaneous fat (4/30). Bones: There are osseous degenerative changes. Transitional lumbosacral anatomy. Slight anterior vertebral body wedging centered at the thoracolumbar junction. IMPRESSION: 1. No definite acute findings in the abdomen or pelvis. 2. There are a few mildly distended loops of small bowel most conspicuous in the right upper abdominal quadrant without juan carlos bowel dilatation. This is most likely either incidental or related delayed bowel transit/ileus. Correlate with clinical exam. 3. There are few mildly prominent, but nonenlarged bilateral perirectal lymph nodes measuring up to 4 millimeters. 4. Focal slight asymmetric fat stranding in the right inguinal subcutaneous fat. Correlate with direct observation. Please note that all CT scans at this facility use dose modulation, iterative reconstruction, and/or weight-based dosing when appropriate to reduce radiation dose to as low as reasonably achievable. Dictated by Jerald March MD @ 09/30/2024 7:20:44 PM (Electronically Signed)
[2024-09-30 18:42] LABS: Lactate* 0.7 mmol/L (0.5-1.9)
[2024-09-30 18:42] LABS: Appearance Urine Clear (Clear)
[2024-09-30 19:04] LABS: Chloride* 102 mmol/L (96-114); Hematocrit 43.1 % (37.0-53.0); Hemoglobin* 14.9 gm/dL (13.5-17.5); Immature Granulocytes Abs Auto 0.01 K/uL (0.00-0.30); Immature Granulocytes Pct Auto 0.2 %; Lymphocytes Absolute Auto 1.43 K/uL (0.90-2.90); Mean Corpuscular HGB Conc 35 gm/dL (32-36); Mean Corpuscular Hemoglobin 31 pg (26-34); Mean Corpuscular Volume 89 fL (80-100); RDW Coefficient of Variation % 11.9 % (11.5-15.5); Red Blood Count 4.82 m/uL (4.30-5.90); Slide Review Reflex No; Sodium* 135 mmol/L (135-149); White Blood Count* 5.34 K/uL (4.50-11.00)
[2024-09-30 19:05] LABS: Potassium* 4.0 mmol/L (3.6-5.1)
[2024-09-30 19:07] LABS: Blood Urea Nitrogen* 9 mg/dL (5-24); Creatinine* 0.9 mg/dL (0.5-1.5); Est. Creatinine Clearance* 117.37; Estimated Glomerular Filt Rate 111 ml/min
[2024-09-30 19:08] LABS: Anion Gap 6 mEq/L (7-15); Calcium* 9.3 mg/dL (8.4-10.6); Carbon Dioxide* 27 mmol/L (20-32); Glucose* 91 mg/dL (60-115)
== END 2024-09-30 19:56 | disposition home or self-care (01) ==
PROVIDERS: Emergency Provider Family Medicine; PCP Student in an Organized Health Care Education/Training Program
DX: R10.32 Left lower quadrant pain (principal); U07.1 COVID-19
CPT/HCPCS: 36415; 74177; 80048; 81001; 83605; 85025; 86140; 87631; 94761; 96374; 99284; J1885; Q9967

== ENCOUNTER 2024-10-03 15:47 | Outpatient (CLI) | payer OTHER, SELFPAY | END 2024-10-03 15:48 | disposition home or self-care (01) | LOC: AMB 10-05 09:52 | PROVIDERS: PCP Student in an Organized Health Care Education/Training Program; Visit Provider Internal Medicine | DX: K62.89 Other specified diseases of anus and rectum (principal) | CPT/HCPCS: A0425; A0433 ==

== ENCOUNTER 2024-10-03 16:12 | Emergency (ER) | payer OTHER, SELFPAY ==
--- OUTSIDE RECORDS SUMMARY | 2024-10-03 16:14 | XMS_ITS | Clinical Summary ---
Author Organization [facility] Address [address] [place] [address] Care Team Providers Care Healthcare Specialist Name Role Phone Unavailable Primary Care Provider Unavailabl e Source Comments Patient records contain information from all sites at [facility]. For routine questions regarding patient records, call [phone] during business hours, M-F 8:00 AM - 5:00 PM Central Time. Record requests for emergency care only can be directed to [phone] at any time.[facility] Allergies Active Allergy Reactions Criticality Noted Date [...] LAB MICROBIOLOGY - BLOOD ORDERABLES Final Result [facility] [address] [place] [id number], [facility] [place] [address] from Last 3 Months or Most Recently Relevant to Health Maintenance Insurance [place] [id number] [employer] [place] [id number] [employer] [place] [id number] [facility] [place] [id number]
--- OUTSIDE RECORDS SUMMARY | 2024-10-03 16:14 | XMS_ITS | Clinical Summary ---
Author Organization [facility] Address [address] [place] [id number] Care Team Providers Care Wood Getter Name Role Phone Danita Lentz MD Primary [...] mg by mouth 2 times daily. 0 10/03/19 20 Active albuterol HFA (PRO-AIR,VENTOLIN,PROV ENTIL) 90 mcg/actuation inhalerIndications:Mil d intermittent asthma without complication (HC) Inhale 2 Puffs by mouth 4 times daily if needed (SOB/wheezin g). 8.5 g 03/21/19 23 Active pantoprazole (PROTONIX) 20 mg tabletIndications:Audio Recording Engineer iker GERD Take 1 Tablet (20 mg) by mouth once daily before a meal. 90 Tablet 3 02/01/20 24 Active tiZANidine (ZANAFLEX) 2 mg tabletIndications:Acut e low back pain, unspecified back pain laterality, unspecified whether sciatica present Take 0.5-1 Tablets (1-2 mg) by mouth every 6 hours if needed for Muscle Spasm. 20 Tablet 2 02/01/20 24 Active montelukast (SINGULAIR) 10 mg tabletIndications:Yeyo rgic rhinoconjunctivitis Take 1 Tablet (10 mg) by mouth at bedtime. 90 Tablet 3 02/01/20 24 Active buPROPion (Wellbutrin XL) 300 mg Extended-Release tabletIndications:Depr ession, recurrent Take 1 Tablet (300 mg) by mouth once daily. 90 Tablet 3 02/01/20 24 Active dextroamphetamine-amph etamine (Adderall XR) 10 mg Extended-Release capsuleIndications:Att ention deficit hyperactivity disorder (ADHD), predominantly inattentive type Take 1 Capsule (10 mg) by mouth 2 times daily at 7 AM and Noon. 60 Capsule 05/27/19 25 Active emtricitabine-tenofovi r (200-300 mg) (Truvada) tabletIndications:Enco unter for HIV pre-exposure prophylaxis Take 1 Tablet by mouth once daily. 90 Tablet 07/17/19 25 Active dextroamphetamine-amph etamine (Adderall XR) 10 mg Extended-Release capsuleIndications:Att ention deficit hyperactivity disorder (ADHD), predominantly inattentive type Take 1 Capsule (10 mg) by mouth 2 times daily at 7 AM and Noon. 60 Capsule 09/15/19 25 Active dextroamphetamine-amph etamine (AdderalL) 5 mg tabletIndications:Atte ntion deficit hyperactivity disorder (ADHD), predominantly inattentive type Take 1 Tablet (5 mg) by mouth once daily. As needed 15 Tablet 09/15/19 25 Active ketorolac (TORADOL) 10 mg tablet Take 10 mg by mouth every 6 hours if needed. 10/01/19 25 Active hydrocortisone (ANUSOL-HC) 2.5 % rectal creamIndications:Throm bosed external hemorrhoid Apply topically to affected area(s) two times daily. 28 g 10/03/19 25 Active oxyCODONE (ROXICODONE) 5 mg immediate release tabletIndications:Rect al pain Take 1 Tablet (5 mg) by mouth every 4 hours if needed for Pain. 15 Tablet 10/04/19 25 Active meloxicam 15 mg tabletIndications:Acut e wrist pain, right Take 1 Tablet (15 mg) by mouth once daily. 14 Tablet 4 2:57 AM CDT 08/17/19 24 2024 Discontin ued(*Med complete/ Regimen complete/ Level of care change) dextroamphetamine-amph etamine (Adderall XR) 10 mg Extended-Release capsuleIndications:Att ention deficit hyperactivity disorder (ADHD), predominantly inattentive type Take 1 Capsule (10 mg) by mouth 2 times daily at 7 AM and Noon. 60 Capsule 08/16/19 25 2024 dextroamphetamine-amph etamine (AdderalL) 5 mg tabletIndications:Atte ntion deficit hyperactivity disorder (ADHD), predominantly inattentive type Take 1 Tablet (5 mg) by mouth once daily. 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 Patient was in the ER on Sunday./Steroid suppository was ordered however patient hasn't gotten it.) 10/02/2024 Travel 09/30/2024 Orders Only [facility] Scanner 1 scan: (1-Ord) [facility], MULTIPLE LABS, 09/30/2024 09/30/2024 Orders Only [facility] Scanner 1 scan: (1-Ord) [place], ABDOMEN PELVIS W CONTRAST, 09/30/2024 07/23/2024 Telephone [facility] [address] [place] [address] Danita Lentz MD Prior Authorization (dextroamphetamine-am phetamine (Adderall XR) 10 mg Extended-Release capsule (PA NOT NEEDED / NOT REQUIRED)) 07/23/2024 Telephone [facility] [address] [place] [address] Danita Lentz MD Prior Authorization (dextroamphetamine-am phetamine (AdderalL) 5 mg tablet (APPROVED 07/23/24 - 07/23/27)) 07/18/2024 5:35 PM CDT Nurse/Clinic Staff Only [facility] [address] [place] [address] 07/18/2024 Travel 07/18/2024 Telephone [facility] [address] [place] [address] Danita Lentz MD Results 07/18/2024 Patient Outreach [facility] [address] [place] [address] Danita Lentz MD Error-please disregard 07/17/2024 1:30 PM CDT Nurse/Clinic Staff Only [facility] [address] [place] [address] Lab (Oral and rectal chlamydia screening ) 07/16/2024 11:05 AM CDT Office Visit [facility] [address] [place] [address] Danita Lentz MD Medication Management (Renewal /Would like to add quick release for adderall ) 07/16/2024 Travel from Last 3 Months Immunizations Immunization Administration Dates Next Due COVID-19 vaccine ([place] J&B-Bio NTech 30mcg/0.3mL) PFMDV 04/15/2020,03/25/2020 DTP 07/15/1990, 7,1985,05/16,1985 HPV 9 (Gardasil 9) 03/31/2021,12/21/2020, 021 Hepatitis A (Adult) 06/07/2007 Hepatitis A (Peds) 05/05/2008,06/07/2007 Hepatitis A, Unspecified 05/05/2008,06/07/2007 Hepatitis B (Peds) 07/09/1996,02/07/1996, 996 Hepatitis B, Unspecified 07/09/1996,02/07/1996,1 INFLUENZA, IIV3 PF (AGE >= 6 MO) 02/01/2024 Inactivated Polio Vaccine 07/15/1990,,1985,03/27 Influenza Virus, Unspecified 01/26/2018,12/19/19 17,12/26/2015 Influenza, IIV4 01/01/2023, 2,12/21/2020,12/29 Influenza, IIV4 (=>6mos) MDV 12/30/2019 Influenza, RIV3 [...] Answer Date Recorded PHQ-2 TOTAL SCORE 2 10/02/2024 Social Connections Answer Date Recorded Do you [...] Lesbian or Sanchez 03/13/2022 7: 46 PM [employer] 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 file Not on file Obstetrics History Last Filed Vital Signs Vital Sign Reading Time Taken Comments Blood Pressure 110/75 10/02/2024 12:43 PM CDT Pulse 90 10/02/2024 12:43 PM CDT Temperature 37.1 C (98.7 F) 08/17/2023 12:45 PM CDT Respiratory Rate 16 12/24/2023 1:55 PM CDT Oxygen Saturation 98% 10/02/2024 12: 43 PM CDT Inhaled Oxygen Concentration - - Weight 79.7 kg (175 lb 12.8 oz) 025 12:43 PM CDT Height 181.3 cm (5' 11.38) 12/24/2023 1:55 PM C DT Body Mass Index 24.26 12/24/2023 1:55 PM CDT Plan of Treatment Health Maintenance Due Date Last Done Comments COVID-19 vaccine series ( season) 2023 03/01/2021, 04/15/2020, 03/25/2020 Influenza Vaccine (#1) 2024 4, 01/01/2023, 12/09/2021, Additional history exists BMI (ht and wt on same day) for age 18+ 12/23/2024 12/24/2023, 12/09/2021, 09/01/2021, Additional history exists Depression screening for age 12+ 10/02/2025 10/02/2024, 10/31/2023, 10/31/2023, Additional history exists Lipids for age 35-44 [...] Procedure Name Priority Date/Time Associated Diagnosis Comments SCAN-LABORATORY REPORT 12:00 AM CDT SCAN-CT INTERPRETATION 12:00 AM CDT GC CHLAMYDIA TRACH PROBE Routine 07/17/2024 1:40 PM CDT Encounter for HIV pre-exposure prophylaxis GC CHLAMYDIA TRACH PROBE Routine 07/17/2024 1:40 PM CDT Encounter for HIV pre-exposure prophylaxis CREATININE Routine 07/16/2024 1:41 PM CDT Encounter for HIV pre-exposure prophylaxis ANTI HIV 1/2 Routine 07/16/2024 1:41 PM CDT Encounter for HIV pre-exposure prophylaxis HEPATIC FUNCTION PANEL Routine 5 1:41 PM CDT Encounter for HIV pre-exposure [...] Recently Relevant to Health Maintenance Results * SCAN-LABORATORY REPORT (09/30/2024 12:00 AM CDT) us Scanner OTHER Final Result * SCAN-CT INTERPRETATION (09/30/2024 12:00 AM CDT) Anatomical Region Laterality Modality Other us Scanner OTHER Final Result * GC Chlamydia [[id number]] - Oral (07/17/2024 1:40 PM CDT) Only the most recent of3 resultswithin the time period is included. CHLAMYDIA PROBE Negative 12:58 PM CDT [facility] N GONORRHOEAE PROBE Negative 07/18/2024 12:58 PM CDT [facility] Other ORAL / Unknown Non-Blood / Unknown 07/17/2024 1:40 PM CDT 07/17/2024 2:02 PM CDT us Danita Lentz MD MICROBIOLOGY Fi nal Result [facility] [address] [place] [address], * ANTI HCV (07/16/2024 1:41 PM CDT) HEPATITIS C ANTIBODY NON-REACTI VE NON-REACT VENTURA [facility] Comment: HCV antibody was non-reactive. There is no laboratory evidence of HCV infection. In most cases, no further action is required. However, if recent HCV exposure is suspected, a test for HCV RNA (test code 48338) is suggested. For additional information please refer to http://education.I'mOK/faq/LBE22g5 (This link is being provided for informational/ educational purposes only.) Blood BLOOD SPECIMEN / Unknown 07/16/2024 1:41 PM CDT 07/16/2024 1:41 PM CDT Danita Lentz MD SEND OUTS Fi nal Result Performing Organization Address [facility]/ZIP Co de Phone Number [facility] [address] [place] [address], [place] [phone] [facility] [address] [place] [address] * CREATININE (07/16/2024 1:41 PM CDT) CREATININE 0.97 0.60 - 1.26 mg/dL [facility] EGFR 102 > OR = 60 mL/min/1.73 m2 [facility] Yance[facility] Blood BLOOD SPECIMEN / Unknown 07/16/2024 1:41 PM CDT 07/16/2024 1:41 PM CDT Danita Lentz MD CHEMISTRY Fi nal Result Performing Organization Address [facility]/ZIP Co de Phone Number [facility] [address] [place] [address], [place] [phone] [facility] [address] [place] [address] * ANTI HIV 1/2 (07/16/2024 1:41 PM CDT) HIV AG/AB, 4TH GEN NON-REACT VENTURA NON-REACT VENTURA [facility] [place] Comment: HIV-1 antigen and HIV-1/HIV-2 antibodies were [...] purpose. For additional information please refer to http://education.I'mOK/faq/DPJ225 (This link is being provided for informational/ educational purposes only.) The performance of this assay has not been clinically validated in patients less than 2 years old. Blood BLOOD SPECIMEN / Unknown 07/16/2024 1:41 PM CDT 07/16/2024 1:41 PM CDT Danita Lentz MD SEND OUTS Fi nal Result [facility] [address] [place] [address], [facility] [address] [place] [address] * LIVER PANEL (HEPATIC FUNCTION PANEL) (07/16/2024 1:41 PM CDT) PROTEIN, TOTAL 7.5 6.1 - 8.1 g/dL [facility] ALBUMIN 4.8 3.6 - 5.1 g/dL [facility] GLOBULIN 2.7 1.9 - 3.7 g/dL (calc) [facility] ALBUMIN/GLOBULIN RATIO 1.8 1.0 - 2.5 (calc) [facility] BILIRUBIN, TOTAL 0.8 0.2 - 1.2 mg/dL [facility] [facility] BILIRUBIN, DIRECT 0.2 < OR = 0.2 mg/dL [facility] BILIRUBIN, INDIRECT 0.6 0.2 - [...] CHEMISTRY Fi nal Result Performing Organization Address City/[facility]/ZIP Co de Phone Number [facility] [address] [place] [address], [facility] [address] [place] [address] * TREPONEMA PALLIDUM [97045.1] (07/16/2024 1:40 PM CDT) TREPONEMA PALLIDUM Non-Reacti ve Non-Reacti ve 07/16/2024 11:17 PM CDT [facility] Blood BLOOD SPECIMEN / Unknown [facility] / Unknown 07/16/2024 1:40 PM CDT 07/16/2024 1:40 PM CDT Danita Lentz MD SEND OUTS Fi nal Result Performing Organization Address City/[facility]/ZIP Co de Phone Number [facility] [address] [address], * (ABNORMAL) LIPID PANEL (12/24/2023 2:43 PM [...] factors. LDL-C is now calculated using the Talia calculation, which is a validated novel method providing better accuracy than the Friedewald equation in the estimation of LDL-C. Gama MACHADO et al. HEIDI. 2013;310(19): 0226-3840 (http://education.Qapital/faq/TWI774) CHOL/HDLC RATIO 4.2 <5.0 (calc) [facility] NON HDL CHOLESTEROL 195(H) <130 mg/dL (calc) [facility] Comment: For patients with diabetes plus 1 major ASCVD risk factor, treating to a non-HDL-C goal of <100 mg/dL (LDL-C of <70 mg/dL) is considered a therapeutic option. Blood BLOOD SPECIMEN / Unknown 12/24/2023 2:43 PM CDT 12/24/2023 2:44 PM CDT Narrative [facility] - 12/25/2023 5:18 AM CDT SPECIMEN COLLECTED AT PROVIDER OFFICE. Danita Lentz MD CHEMISTRY Fi nal Result [facility] [address] [place] [address], [facility] [address] [place] [address] from Last 3 Months or Most Recently Relevant to Health Maintenance Insurance [facility] [employer] Care Teams Wood Getter Relationship Specialty Start Date End [place] [address] [place] [address] PCP - General Family Practice 10/31/23
[2024-10-03 16:22] VITALS: BP 132/97; PULSE 90; RESP 20; TEMP 36.8; O2SAT 99; BMI 23.7
--- NOTE | 2024-10-03 16:26 | ED.GENADULT ---
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 Patient does report a longstanding history of trouble with constipation and bowel problems but does not have a formal diagnosis of Crohn's or ulcerative colitis. He has previous surgical history includes laparoscopic appendectomy. He was seen here in the ER on 09/[address] Qureshi for left-sided abdominal pain into his left testicle. According to those notes he has a baseline history of chronic constipation and is already on MiraLax. He was not febrile. Pulse was 107. Otherwise hemodynamically stable. Workup in the ER showed white count of 5.3, hemoglobin 14.9, normal kidney function, and normal urinalysis. CT scan of his abdomen/pelvis showed no definite acute findings. There were a few mildly distended loops of small bowel in the right upper quadrant without obvious dilatation. A few mildly prominent nonenlarged bilateral perirectal lymph nodes. Focal asymmetric fat stranding in the right inguinal subcutaneous fat. Toradol helped with his pain. He was given a prescription for Toradol pills for pain. Anusol HC suppositories for internal hemorrhoids. [facility] for follow-up visit. According to the clinic notes he had had trouble with bloating and reflux since being in the ER. However his main pain was in the rectal area. He has been on MiraLax every day. He had been having to strain to pass bowel movements and passing some mucus. He had been using preparation H with phenylephrine. He did have a little bit of bleeding from 1 painful hemorrhoid that was not able to reduce He was positive for COVID on 09/28/2024. He had 2 visible hemorrhoids on his exam yesterday in clinic 1 with a thrombosed hemorrhoid at about 5:00 a.m. and another nonthrombosed hemorrhoid at the 12 o'clock position. He had an outpatient referral to colorectal surgery placed by Dr. Colby. Since he left clinic yesterday he has been trying to take MiraLax to keep his stool soft. It has been effective and he is now having near liquid stools and past 3 of them today. He has a lot of rectal pain and feels like this a sensation of fullness there. Today when he was passing a bowel movement he actually also did feel some material that prolapsed out of his rectum in between his gluteal cleft. He took a picture of it with his smart phone which shows an apparent short-segment 1-2 cm of a circumferentially prolapsed rectal mucosa. He was able to reduce this at home by of applying pressure. Since then he has had ongoing rectal pain . His pain was bad enough he did not think he drive to the hospital so he called the ambulance. He has not had a fever. No vomiting. He is also having some pain like a tearing pain in his coccyx and sometimes pain in his left testicle (which had been present before). He has not had a fever. No recent rectal intercourse. No rectal trauma. Related Data Home Medications ?Medication ?Instructions ?Recorded ?Confirmed Lactobacillus acidophilus 10 10,000 mmu cells PO DAILY 09/16/23 09/16/23 billion cell capsule albuterol sulfate 90 mcg/actuation 2 inh inhalation Q6H PRN 09/16/23 09/16/23 aerosol inhaler bupropion HCl 300 mg 24 hr tablet, 300 mg PO DAILY 09/16/23 09/16/23 extended release (Wellbutrin XL) dextroamphetamine-amphetamine ER 10 mg PO BID 09/16/23 09/16/23 10 mg 24hr capsule,extend release (Adderall XR) fluticasone propionate 50 2 spray intranasal DAILY PRN 09/16/23 09/16/23 mcg/actuation nasal spray,suspension (24 Hour Allergy Relief) magnesium oxide 500 mg capsule 500 mg PO BID 09/16/23 09/16/23 montelukast 10 mg tablet 10 mg PO .PRN 09/16/23 09/16/23 (Singulair) pantoprazole 20 mg tablet,delayed 20 mg PO DAILY 09/16/23 09/16/23 release (Protonix) tizanidine 2 mg capsule (Zanaflex) 2 mg PO Q6-8H PRN 09/16/23 09/16/23 Previous Rx's ?Medication ?Instructions ?Recorded clindamycin HCl 300 mg capsule 300 mg PO TID #15 caps 09/16/23 hydrocortisone acetate 25 mg 25 mg UT BID PRN #12 ea 09/30/24 rectal suppository (Anusol-HC) Allergies Allergy/AdvReac Type Severity Reaction Status Date / Time Penicillins Allergy Unknown Anaphylaxis Verified 10/03/24 16:22 [facility] Social History Smoking Status: Never smoker Do you use any of these nicotine containing products: None How often do you have a drink containing alcohol: monthly or less AUDIT-C Alcohol total score: 1 Non-prescribed substance use: denies use service: No Exam Narrative: Exam Narrative: Constitutional: Appears well-developed and well-nourished. Alert. Uncomfortable and somewhat anxious.. HENT: Head: Atraumatic. Nose: Nose normal. Mouth/Throat: Oral mucosa is clear and moist. no trismus. Pharynx normal. Tonsils symmetric. No tonsillar enlargement, erythema, or exudate. Eyes: Conjunctivae normal. EOM normal. Pupils equal, round, and reactive to light. No scleral icterus. Neck: Normal range of motion. Neck supple. No tracheal deviation present. Cardiovascular: Normal rate, regular rhythm. No gallop. No friction rub. No murmur heard. Symmetric radial artery pulses Pulmonary/Chest: Effort normal. No stridor. No respiratory distress. No wheezes. No rales. No rhonchi . No tenderness. Abdominal: Soft. Bowel sounds normal. No distension. No mass. Mild left lower and suprapubic tenderness. No rebound. No guarding. Rectal: Performed with nurse at bedside. Normal buttocks and gluteal cleft. There is no rectal prolapse. Patient does have 2 visible hemorrhoids. One is roughly at 12:00 p.m. in the anterior mid of the anus. It is slightly purplish and may be thrombosed. The 2nd 1 is at about 5 or 6:00 a.m.. It is also slightly purple list has a little bit of skin breakdown. No active bleeding. Digital rectal exam was not performed because the patient rectal discomfort. No redness or purulent drainage from the hemorrhoids. Musculoskeletal: RUE: Normal range of motion. No tenderness. No deformity LUE: Normal range of motion. No tenderness. No deformity RLE: Normal range of motion. No edema. No tenderness. No deformity LLE: Normal range of motion. No edema. No tenderness. No deformity Neurological: Alert and oriented to person, place, and time. Normal strength. CN II-VII intact. No sensory deficit. GCS eye subscore is 4. GCS verbal subscore is 5. GCS motor subscore is 6. Normal coordination Skin: Skin is warm and dry. No rash noted. No pallor. Normal capillary refill. Psychiatric: Normal mood. Normal affect. Const: Vital Signs, click to edit/add: Vital Signs - 24 hr 10/03/24 16:22 10/03/24 17:38 10/03/24 20:49 Temperature 98.2 F 98.0 F 98.0 F Pulse Rate Pulse Rate [Pulse Oximeter] 90 93 89 Respiratory Rate 20 18 16 Blood Pressure Blood Pressure [Le ft Upper Arm] 132/97 H 108/79 107/69 Pulse Oximetry 99 99 98 Oxygen Delivery Me thod Room Air Room Air Room Air 10/03/24 22:39 Temperature 98.5 F Pulse Rate 89 Pulse Rate [Pulse Oximeter] Respiratory Rate 16 Blood Pressure 97/46 L Blood Pressure [Le ft Upper Arm] Pulse Oximetry 98 Oxygen Delivery Me thod Course Course ED Course: Patient arrived by EMS with a pre-hospital report that he had rectal prolapse. I saw the patient with nursing staff it took report from EMS. Fortunately on his initial clinical exam he had no ongoing prolapse. He does have evidence for 2 thrombosed external hemorrhoids. He took a picture of his rectum at home and it does show evidence for a small segment of tissue that had been prolapse but fortunately he has already been able to reduce it. Discussed with our surgeon, Dr. Curran by phone after this patient arrived. She was already aware of him, having taken a call from the clinic doctor who saw him yesterday. Her recommendations would be to avoid any incision or drainage or excision procedure for the hemorrhoids at this point because of likely worsen the patient's acute pain. She recommends management for the hemorrhoids being initially conservative with stool softeners to keep the stool soft and avoid any straining. She recommends soaking in a warm bath after he has BMs to clean and avoiding wiping. She would recommend continue with hydrocortisone cream (not suppositories). Use topical lidocaine or opiates as needed for pain management. For the rectal prolapse, no need for immediate surgical intervention today, since is already reduced. She would recommend a urgent but not emergent outpatient clinic follow-up with Colorectal. He may need surgery in the future because of rectal prolapse, but she would recommend avoiding it in the acute setting. Surgery also recommends repeating labs and CT to make sure there is nothing new evolving today. Laboratory work came back reassuring with normal white count, normal BMP. CT scan came back showing signs of new enterocolitis with slightly worsening associated proctitis. Recommendation is for repeat CT scan after completion of treatment and/or anoscopy to exclude an underlying neoplasm. Reevaluation(s) Reevaluation #1: Recheck- at bedside. Patient's pain is somewhat improved. He still feels as though there is prolapse. I had the patient walk any could feel a foreign object prolapsed out of his rectum. We re-evaluated. It turns out that he is not having incomplete rectal prolapse, rather is having bulging and inflammation of his 2 hemorrhoids. In particular the hemorrhoid that is in the posterior position is inflamed and very painful for him. Reevaluation #2: Recheck-patient having increasing pain. He feels like more tissue was prolapsing. I rechecked. He now does have little bit more prolapse but still appears to be the 2 internal hemorrhoids prolapsing and not a full circumferential full mucosal thickness rectal prolapse at this time. Reevaluation #3: Recheck-discussed with General surgery. She recommends consultation with Colorectal surgery. Discussed with colorectal surgery through the [facility] system, Dr. Machuca. He would recommend stool softeners, analgesia as best as possible, and will have his clinic follow-up with the patient next week. At this time, based on my description he does not think there is any need for emergent surgery tonight or this weekend. However if there is worsening pain or if he has signs of a full-thickness prolapse, patient would potentially need intervention. Recheck-patient reporting increasing pain despite serial doses of IV pain medication. I wonder if the fentanyl may be wearing off too quickly. Will try oral medications see if they give better and more sustained pain relief. Recheck-pain not controlled by oral oxycodone. Additional fentanyl ordered. Patient still having about a 7/10 pain. He is not able to get up and walk peak because pain gets worse any feels like more tissue prolapses. Discussed with hospitalist from [facility], Dr. Luther. He will accept this patient and consult colorectal surgery. There will be a 4-8 hour delay before bed can be a sign [id number] as a sign. Patient agrees transferred [place]. We discussed options for means of transfer. At this point patient and I agree that EMS transport is advisable since the patient is having lot of pain when he tries to sit upper walk and may need more pain meds and route. Vital Signs Vital signs: Initial Vital Signs Temperature 98.2 F 10/03/24 16:22 Temperature Source Temporal Artery Scan 10/03/24 16:22 Pulse Rate 90 10/03/24 16:22 Respiratory Rate 20 10/03/24 16:22 Blood Pressure 132/97 H 10/03/24 16:22 Blood Pressure Mean 108 H 10/03/24 16:22 Pulse Oximetry 99 10/03/24 16:22 Oxygen Delivery Method Room Air 10/03/24 16:22 Vital Signs Temperature 98.2 F 10/03/24 16:22 Pulse Rate 90 10/03/24 16:22 Respiratory Rate 20 10/03/24 16:22 Blood Pressure 132/97 H 10/03/24 16:22 Pulse Oximetry 99 10/03/24 16:22 Oxygen Delivery Method Room Air 10/03/24 16:22 Temperature 98.5 F 10/03/24 22:39 Pulse Rate 89 10/03/24 22:39 Respiratory Rate 16 10/03/24 22:39 Blood Pressure 97/46 L 10/03/24 22:39 Pulse Oximetry 98 10/03/24 22:39 Oxygen Delivery Method Room Air 10/03/24 20:49 Medications Administered Medications: Discontinued Medications Generic Name Dose Route Start Last Admin Trade Name Freq PRN Reason Stop Dose Admin Ciprofloxacin 500 mg 10/03/24 18:31 10/03/24 18:54 Ciprofloxacin 500 Mg Tablet PO 10/03/24 18:32 500 mg ONCE ONE Administration Fentanyl 50 mcg 10/03/24 17:31 10/03/24 17:32 Fentanyl 100 Mcg/2 Ml Inj IVP 10/03/24 17:32 50 mcg ONCE ONE Administration Fentanyl 50 mcg 10/03/24 19:46 10/03/24 19:52 Fentanyl 100 Mcg/2 Ml Inj IVP 10/03/24 19:47 50 mcg ONCE ONE Administration Fentanyl 50 mcg 10/03/24 22:56 10/03/24 23:12 Fentanyl 100 Mcg/2 Ml Inj IVP 10/03/24 22:57 50 mcg ONCE ONE Administration Lidocaine HCl 6 ml 10/03/24 16:40 10/03/24 16:53 Lidocaine Hcl 2 % Jelly (Top) Sterile TOPICAL 10/03/24 16:41 6 ml ONCE ONE Administration Metronidazole 500 mg 10/03/24 18:31 10/03/24 18:54 Metronidazole 500 Mg Tablet PO 10/03/24 18:32 500 mg ONCE ONE Administration Oxycodone HCl 5 mg 10/03/24 18:56 10/03/24 19:01 Oxycodone 5 Mg Tablet PO 10/03/24 18:57 5 mg ONCE ONE Administration Promethazine HCl 12.5 mg 10/03/24 17:31 10/03/24 17:32 Promethazine 25 Mg/Ml Inj IVP 10/03/24 17:32 12.5 mg ONCE ONE Administration Medical Decision Making MDM Narrative Medical decision making narrative: 39-year-old male presenting to the ER today with rectal pain and concerned that he had rectal prolapse. Patient does have pictures on his smart phone showing what appears to be a full circumference prolapse tissue a couple of cm out from his rectal opening at home (picture seems consistent with true rectal prolapse). Fortunately, on my exam here he does have 2 apparently thrombosed prolapsing epic internal hemorrhoids but no evidence for complete rectal prolapse. He has been having rectal pain and also lower abdominal pain for the past couple of days and had a CT scan a couple of days ago without any acute intra-abdominal finding. Repeat CT scan today shows signs of nonspecific enterocolitis and also worsening proctitis. Etiology of this is unclear. He has no history of inflammatory bowel disease. He is not really having diarrhea but has had soft liquid stool since increasing his frequency of MiraLax for the past couple of days. Concern here would be for some sort of potential infection. Will start on Cipro and Flagyl. Consultation was made 1st with General surgery and 2nd with colorectal surgery. Their initial recommended plan for management was pain control, stool softeners, Sitz baths, topical hydrocortisone and outpatient follow-up. However the patient is just having too much pain. Especially his pain gets worse when he tries to get up and walk. He is also having a sensation that he is going to have recurrent prolapse. He did have worsening prolapse of his internal hemorrhoids while here in the ER but did not have a full prolapse of the entire rectum. Therefore because of intractable pain, unexplained worsening proctitis, and the potential for recurrent prolapse, we feel that hospitalization for consultation with Colorectal surgery would be best. Patient strongly wants hospitalization. The be transferred by EMS to [facility] where he will be admitted to hospital service only can consult Colorectal surgery in the morning. Lab Data Labs: Lab Results 10/03/24 Range/Units 16:44 WBC 6.24 (4.50-11.00) K/uL RBC 4.83 (4.30-5.90) m/uL Hgb 14.8 (13.5-17.5) gm/dL Hct 42.7 (37.0-53.0) % MCV 88 (80-100) fL MCH 31 (26-34) pg MCHC 35 (32-36) gm/dL RDW Coeff of Luisa 11.8 (11.5-15.5) % Plt Count 254 (140-440) K/uL Neut % (Auto) 61.6 (42.0-72.0) % Lymph % (Auto) 28.2 (20-44) % [place] % (Auto) 8.7 (0.0-11.0) % Eos % (Auto) 1.3 (0.0-7.0) % Baso % (Auto) 0.2 (0.0-3.0) % Neut # (Auto) 3.85 (1.7-7.0) K/uL Lymph # (Auto) 1.76 (0.90-2.90) K/uL [place] # (Auto) 0.50 (0.00-0.90) K/UL Eos # (Auto) 0.08 (0.00-0.50) K/uL Baso # (Auto) 0.01 (0.00-0.30) K/uL Abs Immat Gran (auto) 0.00 (0.00-0.30) K/uL Imm/Tot Granulo (auto) 0.0 % Sodium 136 (135-149) mmol/L Potassium 3.8 (3.6-5.1) mmol/L Chloride 101 (96-114) mmol/L Carbon Dioxide 26 (20-32) mmol/L Anion Gap 9 (7-15) mEq/L BUN 7 (5-24) mg/dL Creatinine 0.8 (0.5-1.5) mg/dL Estimated Creat Clear 136.07 Estimated GFR 115 ml/min Glucose 88 (60-115) mg/dL Calcium 9.4 (8.4-10.6) mg/dL Imaging Data CT scan - abdomen: Attestation: I have reviewed the pertinent imaging results. Radiologist's impression: IMPRESSION: 1. Findings compatible with a nonspecific infectious versus inflammatory enterocolitis, with slightly worsening associated proctitis. No bowel obstruction. Consider repeat CT upon completion of treatment, to ensure radiographic resolution. Alternatively, direct visualization with anoscopy may be considered to exclude underlying neoplasm. 2. Stable nonspecific subcentimeter perirectal lymph nodes. Discharge Plan Discharge Clinical Impression: Acute proctitis, External hemorrhoid, thrombosed, Rectal prolapse Patient Disposition: [facility] Prescriptions: No Action magnesium oxide 500 mg capsule 500 mg PO BID Lactobacillus acidophilus 10 billion cell capsule 10,000 mmu cells PO DAILY tizanidine [Zanaflex] 2 mg capsule 2 mg PO Q6-8H PRN Rx Instructions: Take 1-2mg PO each time PRN for muscle spasm pantoprazole [Protonix] 20 mg tablet,delayed release (DR/EC) 20 mg PO DAILY montelukast [Singulair] 10 mg tablet 10 mg PO .PRN bupropion HCl [Wellbutrin XL] 300 mg tablet extended release 24 hr 300 mg PO DAILY albuterol sulfate 90 mcg/actuation HFA aerosol inhaler 2 inh inhalation Q6H PRN dextroamphetamine-amphetamine [Adderall XR] 10 mg capsule,extended release 24hr 10 mg PO BID fluticasone propionate [24 Hour Allergy Relief] 50 mcg/actuation spray,suspension 2 spray intranasal DAILY PRN Rx Instructions: administer into each nostril clindamycin HCl 300 mg capsule 300 mg PO TID Qty: 15 0RF hydrocortisone acetate [Anusol-HC] 25 mg suppository 25 mg UT BID PRNQty: 12 0RF Stand Alone Forms: [facility]
--- NOTE | 2024-10-03 16:38 | CRLHL7_ITS ---
For Patients: As a result of the Century Cures Act, medical imaging exams and procedure reports are released immediately into your electronic medical record. You may view this report before your referring provider. If you have questions, please contact your health care provider. INDICATION: Abdominal pain. Rectal and pelvic pain. TECHNIQUE: Multiplanar CT examination of the abdomen and pelvis was performed after the administration of 85 mL Isovue 370 intravenous contrast. COMPARISON: CT abdomen pelvis 09/30/2024.. FINDINGS: Lower chest: No focal consolidation. Normal heart size. No pleural effusions or pneumothorax. Liver: Unremarkable. Gallbladder: Unremarkable. Biliary: Unremarkable. Pancreas: Within normal limits. Spleen: Unremarkable. Adrenal glands: Unremarkable. Renal/ureters/bladder: Normal in size and symmetrically enhancing. No obstructive uropathy. No hydronephrosis or obstructive urinary calculi. No suspicious renal masses. The ureters appear unremarkable. The bladder is within normal limits. Pelvis: Unremarkable prostate. Gastrointestinal: Mild wall thickening and hyperenhancement involving loops of nondistended, fluid-filled small bowel diffusely. Fluid-filled colon, suggestive of diarrheal illness. Appendectomy. Mild rectal wall thickening and perirectal fat stranding, increased since the prior CT. Similarly prominent perirectal lymph nodes. No significant colonic diverticulosis. Mild colonic stool burden. Vasculature: No aortic aneurysm. The portal vein remains patent. No significant atherosclerotic calcifications. Lymph nodes: No pathologic lymphadenopathy by size criteria. Peritoneum: No free fluid or pneumoperitoneum. No drainable fluid collections. Abdominal wall/soft tissues: Unremarkable. No perirectal abscess identified. Bones: No acute osseous abnormalities. IMPRESSION: 1. Findings compatible with a nonspecific infectious versus inflammatory enterocolitis, with slightly worsening associated proctitis. No bowel obstruction. Consider repeat CT upon completion of treatment, to ensure radiographic resolution. Alternatively, direct visualization with anoscopy may be considered to exclude underlying neoplasm. 2. Stable nonspecific subcentimeter perirectal lymph nodes. Please note that all CT scans at this facility use dose modulation, iterative reconstruction, and/or weight-based dosing when appropriate to reduce radiation dose to as low as reasonably achievable. Dictated by Nathaniel Zavala MD @ 10/03/2024 5:17:53 PM (Electronically Signed)
[2024-10-03 16:52] LABS: Hematocrit 42.7 % (37.0-53.0); Hemoglobin* 14.8 gm/dL (13.5-17.5); Immature Granulocytes Abs Auto 0.00 K/uL (0.00-0.30); Immature Granulocytes Pct Auto 0.0 %; Lymphocytes Absolute Auto 1.76 K/uL (0.90-2.90); Mean Corpuscular HGB Conc 35 gm/dL (32-36); Mean Corpuscular Hemoglobin 31 pg (26-34); Mean Corpuscular Volume 88 fL (80-100); RDW Coefficient of Variation % 11.8 % (11.5-15.5); Red Blood Count 4.83 m/uL (4.30-5.90); White Blood Count* 6.24 K/uL (4.50-11.00)
[2024-10-03 16:53] LABS: Slide Review Reflex No
[2024-10-03] MEDS: lidocaine HCL 2 % JELLY (TOP) STERILE 6 ML TOPICAL (16:53)
[2024-10-03 17:03] LABS: Chloride* 101 mmol/L (96-114)
[2024-10-03 17:04] LABS: Potassium* 3.8 mmol/L (3.6-5.1); Sodium* 136 mmol/L (135-149)
[2024-10-03 17:07] LABS: Anion Gap 9 mEq/L (7-15); Blood Urea Nitrogen* 7 mg/dL (5-24); Calcium* 9.4 mg/dL (8.4-10.6); Carbon Dioxide* 26 mmol/L (20-32); Creatinine* 0.8 mg/dL (0.5-1.5); Est. Creatinine Clearance* 136.07; Estimated Glomerular Filt Rate 115 ml/min; Glucose* 88 mg/dL (60-115)
[2024-10-03 17:38] VITALS: BP 108/79; PULSE 93; RESP 18; TEMP 36.7; O2SAT 99
[2024-10-03] MEDS: CIPROFLOXACIN 500 MG TABLET PO (18:54)
[2024-10-03 20:49] VITALS: BP 107/69; PULSE 89; RESP 16; TEMP 36.7; O2SAT 98
[2024-10-03 22:39] VITALS: BP 97/46; PULSE 89; RESP 16; TEMP 36.9; O2SAT 98
== END 2024-10-03 23:27 | disposition short-term general hospital (02) ==
PROVIDERS: Emergency Provider Emergency Medicine; PCP Student in an Organized Health Care Education/Training Program
DX: K62.89 Other specified diseases of anus and rectum (principal); K64.8 Other hemorrhoids; K62.2 Anal prolapse; R10.32 Left lower quadrant pain; U07.1 COVID-19
CPT/HCPCS: 36415; 74177; 80048; 85025; 96374; 96375; 96376; 99283; 99285; A9270; J2550; J3010; Q9967

== ENCOUNTER 2024-10-03 23:10 | Outpatient (CLI) | payer OTHER, SELFPAY | END 2024-10-03 23:11 | disposition home or self-care (01) | LOC: AMB 10-05 10:00 | PROVIDERS: PCP Student in an Organized Health Care Education/Training Program; Visit Provider Family Medicine | DX: K62.3 Rectal prolapse (principal) | CPT/HCPCS: A0425; A0427 ==